=== PATIENT | female | born 1985 | race Hispanic/Latino ===

== ENCOUNTER 2018-09-01 16:52 | Emergency (ER) | payer SELFPAY | END 2018-09-01 17:24 | disposition home or self-care (01) | LOC: EDH 16:52 | DX: O26.891 Other specified pregnancy related conditions, first trimester (principal); Z90.49 Acquired absence of other specified parts of digestive tract; Z72.0 Tobacco use; Z3A.11 11 weeks gestation of pregnancy ==

== ENCOUNTER 2018-10-05 11:55 | Inpatient (IN) | payer OTHER ==
[~2018-10-05] VITALS: Ht 152.4 cm; Wt 48.5 kg
[2018-10-05 12:18] LABS: APPEARANCE,URINE TURBID (CLEAR); BILIRUBIN,URINE NEGATIVE (NEGATIVE); COLOR,URINE YELLOW (YELLOW); GLUCOSE, URINE (UA) NEGATIVE (NEGATIVE); KETONES,URINE NEGATIVE (NEGATIVE); LEUKOCYTE ESTERASE ,URINE LARGE (NEGATIVE); NITRATE,URINE POSITIVE (NEGATIVE); OCCULT BLOOD,URINE MODERATE (NEGATIVE); PROTEIN,URINE 100 mg/dL (NEGATIVE); UROBILINOGEN,URINE 0.2 mg/dL (0.2-1.0)
[2018-10-05 12:39] LABS: BASOPHILS % (AUTO) 0.1 % (0.0-5.0); HEMATOCRIT 32.7 % (36-48); MEAN CORPUSCULAR HEMOGLOBIN 32.6 pg (27.0-33.0); MEAN CORPUSCULAR HGB CONC 34.6 g/dL (32.0-36.0); MEAN CORPUSCULAR VOLUME 94.3 fL (79-99); MONOCYTES % (AUTO) 3.7 % (3.0-13.0); NEUTROPHILS % (AUTO) 92.2 % (40.0-77.0); PLATELET COUNT (AUTO) 165 K/uL (130-400); RED BLOOD CELL COUNT(AUTO) 3.47 MIL/uL (4.00-5.50); WHITE BLOOD COUNT (AUTO) 12.4 K/uL (4.8-10.8)
[2018-10-05] MEDS ORDERED: ACETAMINOPHEN 325 MG TAB ONE (12:39)
[2018-10-05] MEDS ORDERED: SODIUM CHLORIDE 0.9% 1000ML 1,000 ML IV ONE (12:39)
[2018-10-05 12:42] LABS: SQUAMOUS EPITHELIAL CELL,UR Rare /HPF (0-2)
[2018-10-05 12:47] LABS: CREATININE 0.9 mg/dL (0.5-1.5); POTASSIUM 3.7 mmol/L (3.5-5.1)
[2018-10-05 13:12] LABS: BILIRUBIN,DIRECT 0.2 mg/dL (0.0-0.3); BILIRUBIN,TOTAL 0.8 mg/dL (0.2-1.0); TOTAL PROTEIN, SERUM 7.1 g/dL (6.0-8.3)
[2018-10-05] MEDS ORDERED: CEFTRIAXONE SODIUM 1 GM ONE (13:25)
[2018-10-05 13:26] LABS: RBC,URINE 0-1 /HPF (0-1)
[2018-10-05 13:27] LABS: BACTERIA,URINE Moderate /HPF (None Seen); WBC,URINE TNTC /HPF (0-1)
[2018-10-05 14:52] VITALS: BP 97/56
[2018-10-05] MEDS ORDERED: PROMETHAZINE HCL 25 MG/ML 1ML AMPULE IM PRN (15:00)
[2018-10-05] MEDS ORDERED: MEPERIDINE-PF 50 MG/ML SYG IM PRN (15:00)
[2018-10-05] MEDS ORDERED: GENTAMICIN 120 MG IN 100ML NS 100 ML IV SCH (15:15)
[2018-10-05] MEDS ORDERED: MV-M1COM2 PO (15:24)
[2018-10-05] MEDS: LACTATED RINGERS 1000ML 1,000 ML IV SCH (16:08)
[2018-10-05] MEDS: AMPICILLIN 2GM+NS 100ML 100 ML IV SCH ×2 (17:47→22:16)
[2018-10-05 19:40] VITALS: BP 98/55
[2018-10-05] MEDS ORDERED: GENTAMICIN SULFATE 80 MG/2 ML VIAL ONE (22:44)
[2018-10-05] MEDS: GENTAMICIN 80 MG/NS 100 ML PB 100 ML IV SCH (23:00)
[2018-10-05] MEDS: HYDROCODONE/ACETAMINOPHEN 5/325 MG TAB PO PRN (23:04)
[2018-10-06] VITALS (7 sets, daily range): BP systolic 87–112; BP diastolic 51–62
[2018-10-06] MEDS: LACTATED RINGERS 1000ML 1,000 ML IV SCH ×4 (02:55→23:00)
[2018-10-06] MEDS: AMPICILLIN 2GM+NS 100ML 100 ML IV SCH ×4 (04:00→22:03)
[2018-10-06] MEDS: GENTAMICIN 80 MG/NS 100 ML PB 100 ML IV SCH ×3 (07:24→23:02)
[2018-10-06] MEDS: HYDROCODONE/ACETAMINOPHEN 5/325 MG TAB PO PRN (08:10)
--- NOTE | 2018-10-06 10:35 | NUR ---
SAFETY ASSISTED PATIENT TO RESTROOM. NO COMPLAINTS OF DIZZINESS UPON AMBULATING. UPON ENTERING RESTROOM PATIENT HAD AN EPISODE OF EMESIS, UNMEASURABLE. PATIENT DENIES PRIOR NAUSEA.
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
--- NOTE | 2018-10-06 11:21 | NUR ---
CPS Sw spoke to Padmini Krishnamurthy [phone] CPS casewker. Informed her of admission and . Padmini states they will come see pt who missed a hearing yesterday. CPS informed no USD was done. Nurse Weber informed of CPS hx.
--- NOTE | 2018-10-06 14:40 | NUR ---
COMFORT PATIENT RESTING WITH EYES CLOSED,CHEST RISING AND FALLING IN NORMAL PATTERN. CALL LIGHT IN REACH.
[2018-10-06] MEDS: ACETAMINOPHEN EXTRA STRENGTH 500 MG TABLET PO PRN (16:36)
[2018-10-07 03:33] VITALS: BP 102/69
[2018-10-07] MEDS: AMPICILLIN 2GM+NS 100ML 100 ML IV SCH (03:58)
[2018-10-07] MEDS: LACTATED RINGERS 1000ML 1,000 ML IV SCH ×3 (04:43→23:19)
[2018-10-07] MEDS: HYDROCODONE/ACETAMINOPHEN 5/325 MG TAB PO PRN (06:23)
[2018-10-07] MEDS: GENTAMICIN 80 MG/NS 100 ML PB 100 ML IV SCH ×3 (06:32→23:27)
--- NOTE | 2018-10-07 07:15 | NUR ---
REPORT GIVEN TO LAUREN KASPER
--- NOTE | 2018-10-07 07:30 | NUR ---
COMFORT COLD PACKS GIVEN TO PATIENT WRAPPED IN HAND TOWELS AND PLACED BEHIND NECK AND UNDERARMS. PATIENT STATES FEELING BETTER. CVA TENDERNESS TO RIGHT FLANK. PATIENT REPORTS PAIN IS ABSENT FROM LEFT FLANK AREA
[2018-10-07 07:55] VITALS: BP 109/62
--- NOTE | 2018-10-07 08:27 | NUR ---
SPOKE WITH REGARDING SENSITIVITY RESULTS OF URINE CX. NEW ORDERS RECEIVED TO CANCEL AMP 2GM AND START MACROBID [address] RUEDA ALSO MADE AWARE OF TEMPERATURE OF 101.8 AT 0623 THIS MORNING.
[2018-10-07] MEDS: NITROFURANTOIN MONOHYD/M-CRYST 100 MG CAPSULE PO SCH ×2 (08:46→20:08)
--- NOTE | 2018-10-07 10:47 | NUR ---
COMFORT PATIENT IN BED LAYING SUPINE WITH EYES CLOSED. CHEST RISING AND FALLING IN NORMAL PATTERN, NO DISTRESS NOTED. SIGNIFICANT OTHER RESTING AT BEDSIDE ON PULLOUT CHAIR. CALL LIGHT IS IN REACH OF PATIENT.
[2018-10-07 12:00] VITALS: BP 105/68
--- NOTE | 2018-10-07 13:53 | NUR ---
REEDUCATED PATIENT ON IMPORTANCE OF AMBULATING TO PREVENT BLOOD CLOTS. ADVISED PATIENT TO AMBULATE IN HALLWAY 15 MINS. PATIENT VOICED UNDERSTANDING.
[2018-10-07] MEDS ORDERED: MAGNESIUM HYDROXIDE 30 ML/UDCUP PO PRN (14:30)
[2018-10-07 15:25] VITALS: BP 114/78
[2018-10-07] MEDS: ACETAMINOPHEN EXTRA STRENGTH 500 MG TABLET PO PRN (16:46)
--- NOTE | 2018-10-07 17:39 | NUR ---
COMFORT PATIENT C/O FEELING WARM. TEMPERATURE CHECKED. PATIENT TEMP 99.9. ADVISED PATIENT TO REMOVE TOP BLANKET AND COVER WITH SHEET. COOL PACKS PLACED BEHIND NECK AND UNDERARMS.
[2018-10-07 19:18] VITALS: BP 105/65
--- NOTE | 2018-10-07 19:25 | NUR ---
FHT taken via doppler - 160/min Addendum: 10/07/18 at 2046 by HOLLY RODRIGUEZ RN Amended: Links added.
[2018-10-07 23:20] VITALS: BP 104/68
[2018-10-08 04:03] VITALS: BP 118/76
[2018-10-08] MEDS: GENTAMICIN 80 MG/NS 100 ML PB 100 ML IV SCH (06:26)
[2018-10-08] MEDS: HYDROCODONE/ACETAMINOPHEN 5/325 MG TAB PO PRN (06:30)
[2018-10-08 07:30] VITALS: BP 106/65
[2018-10-08] MEDS: NITROFURANTOIN MONOHYD/M-CRYST 100 MG CAPSULE PO SCH (09:08)
--- NOTE | 2018-10-08 10:56 | NUR ---
MD DELACRUZ ROUNDING ON PATIENT. NEW ORDERS RECEIVED. PATIENT OKAY FOR DISCHARGE.
[2018-10-08 11:30] VITALS: BP 104/70
--- NOTE | 2018-10-08 12:50 | NUR ---
DISCHARGE PATIENT LEFT UNIT VIA WHEELCHAIR WITH BELONGINGS IN HAND ACCOMPANIED BY SIGNIFICANT OTHER. PERSONAL VEHICLE USED FOR TRANSPORTATION. NO COMPLAINTS OR CONCERNS ADDRESSED FROM PATIENT ON DISCHARGE.
== END 2018-10-08 12:50 | disposition home or self-care (01) | DRG 833 ==
LOC: EDH 11:55 → WSH 11:56
PROVIDERS: ADMIT Obstetrics & Gynecology; ATTEND Obstetrics & Gynecology
DX: O23.02 Infections of kidney in pregnancy, second trimester (principal); Z3A.17 17 weeks gestation of pregnancy
CPT/HCPCS: 36415; 76805; 80048; 80076; 81001; 84702; 85025; 87040; 87077; 87088; 87186; G0378; J0290; J0696; J1580; J2175; J2550; J7030; J7120

== ENCOUNTER 2021-02-23 15:55 | Emergency (ER) | payer MEDICAID ==
[~2021-02-23] VITALS: Ht 152.4 cm; Wt 44.0 kg
[2021-02-23] MEDS ORDERED: ACETAMINOPHEN 325 MG TAB PO ONE (16:30)
[2021-02-23 16:36] LABS: APPEARANCE,URINE Cloudy (CLEAR); BILIRUBIN,URINE Negative (NEGATIVE); COLOR,URINE Yellow (YELLOW); GLUCOSE, URINE (UA) Negative (NEGATIVE); KETONES,URINE Negative (NEGATIVE); LEUKOCYTE ESTERASE ,URINE Moderate (NEGATIVE); NITRATE,URINE Negative (NEGATIVE); OCCULT BLOOD,URINE Negative (NEGATIVE); PH,URINE 6.5 (5.0-8.0); PROTEIN,URINE Negative (NEGATIVE)
[2021-02-23 16:40] LABS: HCG,QUAL RESULT POSITIVE (NEGATIVE)
[2021-02-23 16:50] LABS: BACTERIA,URINE Moderate /HPF (None Seen); MUCUS,URINE Few LPF (None Seen); SQUAMOUS EPITHELIAL CELL,UR Moderate /HPF (0-2); YEAST,URINE BUDDING Rare /HPF (None Seen)
[2021-02-23 16:50] LABS: BASOPHILS % (AUTO) 0.1 % (0.0-5.0); EOSINOPHILS % (AUTO) 0.3 % (0.0-8.0); LYMPHOCYTES % (AUTO) 19.9 % (21.0-51.0); MEAN CORPUSCULAR HEMOGLOBIN 28.7 pg (27.0-33.0); MEAN CORPUSCULAR HGB CONC 33.3 g/dL (32.0-36.0); MEAN CORPUSCULAR VOLUME 86.2 fL (79-99); MONOCYTES % (AUTO) 4.1 % (3.0-13.0); NEUTROPHILS % (AUTO) 75.1 % (40.0-77.0); PLATELET COUNT (AUTO) 206 K/uL (130-400); RED BLOOD CELL COUNT(AUTO) 3.48 MIL/uL (4.00-5.50); RED CELL DISTRIBUTION WIDTH 14.6 % (11.0-15.5); WHITE BLOOD COUNT (AUTO) 7.7 K/uL (4.8-10.8)
[2021-02-23 17:03] LABS: CREATININE 0.5 mg/dL (0.5-1.5); POTASSIUM 3.9 mmol/L (3.5-5.1)
[2021-02-23] MEDS ORDERED: ACET-3194 PO (17:20)
[2021-02-23] MEDS ORDERED: CEPH500C2 PO (17:20)
[2021-02-23] MEDS ORDERED: CLOT45CR23 VG (17:20)
[2021-02-23] MEDS ORDERED: PREN1COM PO (17:20)
[2021-02-23 17:28] LABS: ALBUMIN 3.1 g/dL (3.5-5.0); BILIRUBIN,TOTAL 0.3 mg/dL (0.2-1.0)
[2021-02-23 17:40] VITALS: BP 121/77
== END 2021-02-23 17:50 | disposition home or self-care (01) ==
LOC: EDH 15:55
DX: O20.0 Threatened abortion (principal); O23.42 Unspecified infection of urinary tract in pregnancy, second trimester; N39.0 Urinary tract infection, site not specified; B37.3 Candidiasis of vulva and vagina; Z3A.16 16 weeks gestation of pregnancy
CPT/HCPCS: 36415; 76801; 80053; 81001; 81025; 83690; 84702; 85025; 86900; 86901; 87088; 87210; 87486; 87797

== ENCOUNTER 2021-07-19 07:23 | Inpatient (IN) | payer MEDICAID ==
[~2021-07-19] VITALS: Ht 160 cm; Wt 49.9 kg
[~2021-07-19 07:23] MED LIST: ACET-3194 PO; CEPH500C2 PO; CLOT45CR23 VG; PREN1COM PO
[2021-07-19] MEDS ORDERED: NALOXONE HCL 0.4 MG/1 ML ML IV PRN (08:00)
[2021-07-19] MEDS ORDERED: LACTATED RINGERS 1000ML 1,000 ML IV PRN (08:00)
[2021-07-19] MEDS ORDERED: AMPICILLIN 2GM+NS 100ML 100 ML IV SCH (08:00)
[2021-07-19] MEDS ORDERED: ROPIVACAINE 0.2% 100ML VIAL 100 ML EP SCH (08:00)
[2021-07-19] MEDS ORDERED: LACTATED RINGERS 500 ML 500 ML IV PRN (08:00)
[2021-07-19] MEDS ORDERED: EPHEDRINE SULFATE 50 MG/ML AMPULE IVP PRN (08:00)
[2021-07-19] MEDS ORDERED: AMPICILLIN 2GM+NS 100ML 100 ML IV ONE (08:00)
[2021-07-19] MEDS ORDERED: OXYTOCIN-LR 20 UNITS/1000 ML 1,000 ML IV ONE (08:01)
[2021-07-19 08:21] LABS: HEMATOCRIT 29.9 % (36-48); MEAN CORPUSCULAR HEMOGLOBIN 30.5 pg (27.0-33.0); MEAN CORPUSCULAR HGB CONC 33.4 g/dL (32.0-36.0); MEAN CORPUSCULAR VOLUME 91.2 fL (79-99); RED BLOOD CELL COUNT(AUTO) 3.28 MIL/uL (4.00-5.50); RED CELL DISTRIBUTION WIDTH 12.5 % (11.0-15.5); WHITE BLOOD COUNT (AUTO) 8.9 K/uL (4.8-10.8)
[2021-07-19 08:34] VITALS: BP 135/89
[2021-07-19 08:50] LABS: APPEARANCE,URINE SL CLOUDY (CLEAR); BILIRUBIN,URINE NEGATIVE (NEGATIVE); COLOR,URINE YELLOW (YELLOW); GLUCOSE, URINE (UA) NEGATIVE (NEGATIVE); KETONES,URINE 15 mg/dL (NEGATIVE); LEUKOCYTE ESTERASE ,URINE SMALL (NEGATIVE); NITRATE,URINE NEGATIVE (NEGATIVE); OCCULT BLOOD,URINE LARGE (NEGATIVE); PH,URINE 6.5 (5.0-8.0); PROTEIN,URINE 30 mg/dL (NEGATIVE)
[2021-07-19 08:57] LABS: AMPHET/METH SCREEN,URINE NEGATIVE (NEGATIVE); BARBITURATE SCREEN, URINE NEGATIVE (NEGATIVE); BENZODIAZEPINES SCREEN,URINE NEGATIVE (NEGATIVE); CANNABINOID SCREEN,URINE POSITIVE (NEGATIVE); COCAINE SCREEN,URINE POSITIVE (NEGATIVE); OPIATE SCREEN,URINE NEGATIVE (NEGATIVE); PHENCYCLIDINE SCREEN,URINE NEGATIVE (NEGATIVE)
[2021-07-19 09:11] LABS: BACTERIA,URINE Moderate /HPF (None Seen)
[2021-07-19] MEDS ORDERED: OXYTOCIN-LR 20 UNITS/1000 ML 1,000 ML IV SCH (09:30)
[2021-07-19] MEDS ORDERED: MEASLES/MUMPS/RUBELLA VACCINE, LIVE 0.5 ML/VIAL SQ PRN (09:30)
[2021-07-19] MEDS ORDERED: ACETAMINOPHEN 325 MG TAB PO PRN (09:30)
[2021-07-19] MEDS ORDERED: BUTORPHANOL TARTRATE 2 MG/ML IVP SCH (09:30)
[2021-07-19] MEDS ORDERED: DIPH,PERTUSS(ACELL),TET VAC/PF 0.5 ML VIAL IM PRN (09:30)
[2021-07-19] MEDS ORDERED: WITCH HAZEL 1 PAD TP PRN (09:30)
[2021-07-19] MEDS ORDERED: BENZOCAINE/LANOLIN/ALOE VERA 60 ML AEROSOL TP PRN (09:30)
[2021-07-19] MEDS ORDERED: LANOLIN 30GM OINTMENT TP PRN (09:30)
[2021-07-19 09:56] LABS: RAPID PLASMA REAGIN NONREACTIVE (NONREACTIVE)
[2021-07-19] MEDS: IBUPROFEN 600 MG TABLET PO PRN ×2 (09:57→15:50)
[2021-07-19] MEDS: OXYTOCIN-LR 20 UNITS/1000 ML 1,000 ML IV SCH (10:15)
[2021-07-19 11:45] VITALS: BP 150/72
[2021-07-19 16:36] VITALS: BP 121/77
[2021-07-19] MEDS ORDERED: LORATADINE 10 MG TABLET ONE (19:04)
[2021-07-19 19:50] VITALS: BP 111/70
[2021-07-19] MEDS: AMPICILLIN 1GM+NS 50ML 50 ML IV SCH (20:00)
[2021-07-19] MEDS ORDERED: PREN1TAB63 PO (20:36)
[2021-07-19] MEDS ORDERED: FERR-82 PO (20:36)
[2021-07-19] MEDS: DOCUSATE SODIUM 100 MG CAP PO SCH (21:07)
[2021-07-19 23:29] VITALS: BP 113/62
[2021-07-20] MEDS: AMPICILLIN 1GM+NS 50ML 50 ML IV SCH ×4 (00:15→00:19)
[2021-07-20] MEDS: OXYTOCIN-LR 20 UNITS/1000 ML 1,000 ML IV SCH (00:18)
[2021-07-20 04:02] VITALS: BP 129/68
[2021-07-20 06:21] LABS: HEMATOCRIT 28.6 % (36-48); MEAN CORPUSCULAR HEMOGLOBIN 29.8 pg (27.0-33.0); MEAN CORPUSCULAR HGB CONC 32.5 g/dL (32.0-36.0); MEAN CORPUSCULAR VOLUME 91.7 fL (79-99); RED BLOOD CELL COUNT(AUTO) 3.12 MIL/uL (4.00-5.50); RED CELL DISTRIBUTION WIDTH 12.5 % (11.0-15.5)
[2021-07-20 07:47] VITALS: BP 120/75
[2021-07-20] MEDS: DOCUSATE SODIUM 100 MG CAP PO SCH (08:11)
[2021-07-20] MEDS: IBUPROFEN 600 MG TABLET PO PRN (08:13)
[2021-07-20 11:52] VITALS: BP 131/89
[2021-07-20] MEDS ORDERED: IBUP-2088 PO (13:40)
[2021-07-20] MEDS ORDERED: FERR-72 PO (13:41)
== END 2021-07-20 15:30 | disposition home or self-care (01) | DRG 560 ==
LOC: EDH 07:23 → OBSVTOIN 07:24 → UNDOADMOB 07:24 → LDH 07:24 → WSH 11:57
PROVIDERS: ADMIT Obstetrics & Gynecology; ATTEND Obstetrics & Gynecology
PROC: 10E0XZZ Delivery of Products of Conception, External Approach (ICD-10-PCS; principal; 2021-07-19)
PROC: 10907ZC Drainage of Amniotic Fluid, Therapeutic from Products of Conception, Via Natural or Artificial Opening (ICD-10-PCS; 2021-07-19)
DX: O75.89 Other specified complications of labor and delivery (principal); Z37.0 Single live birth; F17.210 Nicotine dependence, cigarettes, uncomplicated; O99.334 Smoking (tobacco) complicating childbirth; Z3A.37 37 weeks gestation of pregnancy
CPT/HCPCS: 36415; 80305; 81001; 85027; 86592; 86701; 86850; 86900; 86901; 87088; 87340; 87390; G0378; J0290; J2590; J7120